=== PATIENT | female | born 1980 | race Caucasian/White ===

== ENCOUNTER 2023-05-20 13:29 | Emergency (ER) | payer OTHER, SELFPAY ==
[2023-05-20 13:36] VITALS: BP 155/99
--- NOTE | 2023-05-20 15:24 | ED.GENMED ---
History of Present Illness
General
Chief Complaint: Musculo-Skeletal Complaint
Source: patient
Exam Limitations: none
Time Seen by Provider: 05/20/23 15:03
Nursing documentation reviewed up to this point in time: agreed with
Travel History
Have you had any contact with someone who has COVID-19?: No
Do you have any symptoms of coronavirus? Fever > 100 degrees, chills, cough, shortness of breath, sore throat, loss of taste or smell, muscle aches, or headache?: No
History of Present Illness
History of Present Illness:
The patient is a very pleasant 42-year-old female who reports that she was doing a polar plunge for work and twisted her left ankle. Patient is an employee at [employer] and injury occurred through work. Patient reports that she
did not hit her head. She denies neck pain and back pain. She has isolated pain in her left ankle
Past History
Past History
ED Past Medical History: None
ED Past Surgical History: Appendectomy and Gynecological
Social History
Tobacco: Non-smoker
Alcohol: Other
Drug: None
Personal:
Living: with family
Employment: Employed
Family History
Family History: Other
Review of Systems
Review of Systems
Allergies reviewed?: Yes
All Other Systems: ROS reviewed and negative except as documented in HPI and ROS
Constitutional: Reports no symptoms
EENT: Reports no symptoms
Respiratory: Reports no symptoms
Cardiac: Reports no symptoms
ABD/GI: Reports no symptoms
: Reports no symptoms
Musculoskeletal: Reports joint pain and joint swelling
Skin: Reports no symptoms
Neurological: Reports no symptoms
Endocrine: Reports no symptoms
Hematologic/Lymphatic: Reports no symptoms
Psychiatric: Reports no symptoms
Phy Exam
Physical Exam
Physical Exam:
Physical Exam
General: no apparent distress, not acutely ill
Neck: supple. Nontender
Heart: s1/s2 regular rate and rhythm, no murmur. No vertebral spine tenderness
Lungs: no acute respiratory distress. clear bilaterally
Abdomen: Soft. No CVA tenderness. No vertebral spine tenderness
Neuro: alert and oriented. no focal neurological deficits
Skin: no rash
Psychiatric: well kept. interactive and cooperative
Extremities: no edema. Swollen and tender lateral left ankle area. Strong pulses bilateral feet. Excellent cap refill of feet. 5 out of 5 strength in all extremities.
Course
Orders/Labs/Results
Orders:
Orders
05/20/23 13:39
Ankle, left 3 view CR [CR Ankle - Left Min 3 Views ] Urgent
Comment:
Reason For Exam: twisted ankle doing a polar plunge in [facility] today
05/20/23 15:14
Ibuprofen [Motrin] 600 mg PO NOW STA
Oxycodone/Acetaminophen [Percocet 5/325] 1 tablet PO NOW STA
05/20/23 15:16
Splints/Slings/Crut- Treatment ONCE
Crutches: Yes
Location: Left
Vital Signs
Initial and Last Documented VS:
Initial Vital Signs
Temp Pulse Resp BP Pulse Ox
98.0 F 92 16 155/99 98
05/20/23 13:36 05/20/23 13:36 05/20/23 13:36 05/20/23 13:36 05/20/23 13:36
Last Documented Vital Signs
Temp Pulse Resp BP Pulse Ox
98.0 F 92 16 155/99 98
05/20/23 13:36 05/20/23 13:36 05/20/23 13:36 05/20/23 13:36 05/20/23 13:36
MDM/Problems Addressed
Differential Diagnosis Includes:
Left ankle fracture, left ankle sprain, left ankle contusion
MDM/Problems Addressed:
Patient presents with acute pain and swelling of left ankle after twisting it at 11 AM visit today at work
Acute Exacerbation and/or Progression of Chronic Illness:
Patient is acutely hypertensive, I suspect this is from anxiety and pain related to patient's ankle fracture
Acute Exacerbation and/or Progression of Chronic Illness: HTN
*Radiology
Radiology exam reviewed: preliminary read by ED provider (Spiral fibular fracture of left ankle) and radiology read reviewed
*Pulse Oximetry
Patient hypoxic: no
*EKG
Interpreted by ED Provider?: NA
*Steamfitter Interpretation
Rate: Steamfitter- N/A
*Critical Care Note
Total Time (30-74mins, 75-104mins- exclusive of procedures): Not Applicable
Data Reviewed
Source: patient
Prescriptions/Medications Considered But Not Given:
Patient will be given 1 Percocet and Motrin for pain, especially given that she has to be placed in a splint.
Patient Management
Discussion with other providers: Other (Case discussed with Dr. Tucker Zamora who agreed to follow-up with patient this coming up week in the office)
Escalation/DeEscalation of care consider admission/obs:
Patient has no sign of head or neck injury. She appears well and comfortable. She is strong pulses and sensation in feet.
Update Note
Update Note:
Patient placed in left lower extremity (short posterior and sugar-tong splint). Splint checked by me. Strong pulses of left foot
ED Attending Note
-
Portions of this chart may have been created with voice recognition software.� Occasional wrong word or��sound alike� substitutions may have occurred due to the inherent limitations of voice recognition software.
Discharge Plan
Departure
Patient Disposition: Home (Routine Discharge)
Date of Disposition: 05/20/23
Time of Disposition: 15:31
Patient with high blood pressure during this ER visit?: Yes
Condition: Good
Covid-19: Not Applicable
Discharge Problem:
Closed left tibial fracture
Instructions: How to Use Crutches, Ankle Fracture (DC), Splint Care ED
Prescriptions:
No Action
naproxen 500 mg Tablet
500 mg PO PRN PRN (Reason: pain)
Referrals:
Kayla Flor PA [Family Provider] -
Tucker Zamora MD [Active] -
Activity Restrictions/Additional Instructions:
Do not bear weight on your left foot. Please call and follow-up with orthopedist to see next week
Take 600 mg of Motrin every 6-8 hours with food for pain.
Interventions
Interventions:
*ED COVID-19 Vaccine History Last Done: 05/20/23 13:36
ED-Musculoskeletal Assessment Last Done: 05/20/23 14:07
[2023-05-20] MEDS: MOTRIN 600 MG PO (15:30)
[2023-05-20] MEDS: PERCOCET 5/325 1 TABLET PO (15:30)
== END 2023-05-20 16:48 | disposition home or self-care (01) ==
LOC: EMR 13:29
PROVIDERS: EMERGENCY PHYSICIAN Emergency Medicine; FAMILY PHYSICIAN Physician Assistant
DX: S82.202A Unspecified fracture of shaft of left tibia, initial encounter for closed fracture (principal); X50.1XXA Overexertion from prolonged static or awkward postures, initial encounter; Y93.89 Activity, other specified; Y92.89 Other specified places as the place of occurrence of the external cause; Y99.0 Civilian activity done for income or pay; R03.0 Elevated blood-pressure reading, without diagnosis of hypertension; Z88.1 Allergy status to other antibiotic agents; Z88.0 Allergy status to penicillin
CPT/HCPCS: 99283; 29515; 73610

== ENCOUNTER → 2024-02-06 12:51 | Outpatient (REF) | payer OTHER, SELFPAY | LOC: HWRAD 12:51 | PROVIDERS: ATTENDING PHYSICIAN Advanced Practice Midwife; FAMILY PHYSICIAN Physician Assistant | DX: R10.2 Pelvic and perineal pain (principal); N92.4 Excessive bleeding in the premenopausal period | CPT/HCPCS: 76830; 76856 ==

== ENCOUNTER → 2024-07-06 08:08 | Outpatient (REF) | payer OTHER, SELFPAY | LOC: WDC 08:08 | PROVIDERS: ATTENDING PHYSICIAN Physician Assistant | DX: Z12.31 Encounter for screening mammogram for malignant neoplasm of breast (principal) | CPT/HCPCS: 77063; 77067 ==

== ENCOUNTER → 2024-07-13 08:26 | Outpatient (REF) | payer OTHER, SELFPAY | LOC: WDC 08:26 | PROVIDERS: ATTENDING PHYSICIAN Physician Assistant | DX: R92.8 Other abnormal and inconclusive findings on diagnostic imaging of breast (principal) | CPT/HCPCS: 76642 ==

== ENCOUNTER → 2025-02-27 14:19 | Outpatient (REF) | payer OTHER, SELFPAY | LOC: HWRAD 14:19 | PROVIDERS: ATTENDING PHYSICIAN Obstetrics & Gynecology Gynecology; FAMILY PHYSICIAN Physician Assistant | DX: N93.9 Abnormal uterine and vaginal bleeding, unspecified (principal) | CPT/HCPCS: 76830; 76856 ==